=== PATIENT | female | born 1965 | race Two or more races ===

== ENCOUNTER 2020-04-03 21:52 | Emergency (ER) | payer BC, OTHER ==
[~2020-04-03] VITALS: Ht 165.1 cm; Wt 104.3 kg
[2020-04-03 23:46] VITALS: BP 123/82
[2020-04-04] MEDS ORDERED: ACETAMINOPHEN 325 MG TAB PO ONE (00:30)
== END 2020-04-04 02:30 | disposition home or self-care (01) ==
LOC: ER 21:52
DX: R50.9 Fever, unspecified (principal); R05 Cough; R06.02 Shortness of breath; R53.1 Weakness; R42 Dizziness and giddiness; R51 Headache
CPT/HCPCS: 87070; 87804; 87880